=== PATIENT | female | born 1965 | race Caucasian/White ===

== ENCOUNTER 2019-05-25 03:24 | Inpatient (IN) | payer MEDICARE, OTHER ==
[~2019-05-25] VITALS: Ht 157.5 cm; Wt 63.0 kg
[2019-05-25 03:30] VITALS: BP_SYST 153
[2019-05-25] MEDS ORDERED: NACL 0.9% 1,000 ML IV ONE ×3 (03:30→07:30)
[2019-05-25] MEDS ORDERED: SULF1TAB48 PO (04:02)
[2019-05-25] MEDS ORDERED: BISA10SU61 RC (04:02)
[2019-05-25] MEDS ORDERED: MEGE625O3 PO (04:02)
[2019-05-25] MEDS ORDERED: LEVE1000 PO (04:02)
[2019-05-25] MEDS ORDERED: ELA50 PO (04:02)
[2019-05-25] MEDS ORDERED: POLY17PO4 PO (04:02)
[2019-05-25] MEDS ORDERED: [UNRECOGNIZED DRUG - OTHER] PO (04:02)
[2019-05-25] MEDS ORDERED: GLUXR500 PO (04:02)
[2019-05-25] MEDS ORDERED: LIP20 PO (04:02)
[2019-05-25] MEDS ORDERED: METO50TA7 PO (04:02)
[2019-05-25] MEDS ORDERED: MAGN800O PO (04:02)
[2019-05-25] MEDS ORDERED: ACET325T53 PO (04:02)
[2019-05-25 04:07] LABS: HEMOGLOBIN 11.4 g/dL (12.0-16.0); MEAN CORPUSCULAR HEMOGLOBIN 26 pg (27-31); MEAN CORPUSCULAR HGB CONC 32 % (32-36); RED BLOOD CELL COUNT(AUTO) 4.39 MIL/uL (4.2-6.2)
[2019-05-25 04:12] LABS: HEMATOCRIT 35.3 % (36-48); MEAN CORPUSCULAR VOLUME 81 fL (79.0-98.0); PLATELET COUNT (AUTO) 138 K/uL (130-430); RED CELL DISTRIBUTION WIDTH 14.4 % (9.0-15.0); WHITE BLOOD COUNT (AUTO) 3.2 K/uL (4.8-10.8)
[2019-05-25 04:26] LABS: ATYPICAL LYMPHOCYTES % 0 % (0-0); BAND % (MANUAL) 3 % (0-6); EOSINOPHILS % (MANUAL) 2 % (0-7); LYMPHOCYTES % (MANUAL) 10 % (20-46); MONOCYTES % (MANUAL) 6 % (0-11)
[2019-05-25 04:27] LABS: BASOPHILS % (MANUAL) 0 % (0-2)
[2019-05-25] MEDS ORDERED: cefTRIAXone 1 GM IVPB PREMIX 50 ML IV ONE (05:00)
[2019-05-25 05:15] LABS: BILIRUBIN,URINE NEGATIVE (NEGATIVE); BLOOD, URINE 1+ (NEGATIVE); CLARITY/URINE CLEAR (CLEAR); COLOR,URINE YELLOW (YELLOW); GLUCOSE,URINE NEGATIVE (NEGATIVE); KETONES,URINE NEGATIVE (NEGATIVE); LEUKOCYTE ESTERASE ,URINE 2+ (NEGATIVE); NITRITE, URINE NEGATIVE (NEGATIVE); PROTEIN URINE 1+ (NEGATIVE); UROBILINOGEN,URINE 0.2 (0.2-1.0)
[2019-05-25 05:23] LABS: BACTERIA,URINE MODERATE /HPF (None Seen); WBC,URINE 50-80 /HPF (0-3); YEAST,URINE Moderate /HPF (None Seen)
[2019-05-25 06:16] LABS: INR 1.2 (0.8-1.2); PROTHROMBIN TIME 11.7 SECS (9.5-12.5)
[2019-05-25 06:50] LABS: ALBUMIN 2.8 g/dL (3.4-4.8); CALCIUM 7.6 mg/dL (8.4-11.0); CREATININE 0.96 mg/dL (0.55-1.30); POTASSIUM 3.8 mmol/L (3.5-5.1); TOTAL BILIRUBIN 0.2 mg/dL (0.0-1.0)
[2019-05-25] MEDS ORDERED: ACETAMINOPHEN 500 MG TABLET ONE (07:56)
[2019-05-25] MEDS ORDERED: POTASSIUM CHLORIDE 20 MEQ TAB.PRT.SR PO PRN (08:15)
[2019-05-25] MEDS ORDERED: LORazepam 2 MG/ML VIAL IVP PRN (08:15)
[2019-05-25] MEDS ORDERED: MAGNESIUM SULFATE 50 ML IV PRN (08:15)
[2019-05-25] MEDS ORDERED: MUPIROCIN 2% TOPICAL OINTMENT 22 GM NS PRN (08:15)
[2019-05-25] MEDS ORDERED: ONDANSETRON HCL 4 MG/2 ML VIAL IVP PRN (08:15)
[2019-05-25] MEDS ORDERED: MORPHINE 2 MG/ML INJ. SYRINGE IVP PRN ×2 (08:15)
[2019-05-25] MEDS ORDERED: ACETAMINOPHEN 325 MG TABLET PO PRN (08:15)
[2019-05-25] MEDS ORDERED: DEXTROSE 50% JECT 50 ML DISP.SYRIN IVP PRN (08:15)
[2019-05-25] MEDS ORDERED: ZOLPIDEM TARTRATE 5 MG TABLET PO PRN (08:15)
[2019-05-25] MEDS ORDERED: DOCUSATE SODIUM 100 MG CAPSULE PO PRN (08:15)
[2019-05-25 09:00] VITALS: BP_SYST 103
[2019-05-25] MEDS ORDERED: levETIRAcetam 500 MG TABLET PO ONE (09:00)
[2019-05-25] MEDS ORDERED: cefTRIAXone 1 GM VIAL IM SCH (09:00)
[2019-05-25] MEDS ORDERED: HEPARIN SODIUM,PORCINE 5000 UNITS/ML VIAL SUBCUT ONE (09:00)
[2019-05-25] MEDS ORDERED: METOPROLOL SUCCINATE 50 MG TAB.SR.24H (TOPROL XL) PO SCH (09:00)
[2019-05-25] MEDS ORDERED: METOPROLOL SUCCINATE 50 MG TAB.SR.24H (TOPROL XL) PO ONE (09:00)
[2019-05-25] MEDS ORDERED: FLUCONAZOLE 100 mg/ NS 50 ML IV SCH (09:00)
[2019-05-25] MEDS ORDERED: NACL 0.9% 1,000 ML IV SCH (09:45)
[2019-05-25 12:40] VITALS: BP_SYST 139
[2019-05-25] MEDS: ATORVASTATIN 20 MG TABLET PO SCH (15:37)
[2019-05-25] MEDS: FLUCONAZOLE 100 mg/ NS 50 ML IV SCH (15:39)
[2019-05-25] MEDS: INSULIN LISPRO SLIDING SCALE 100 UNITS/ML VIAL (humaLOG) SUBCUT PRN ×2 (15:48→18:46)
[2019-05-25 15:50] VITALS: BP_SYST 143
[2019-05-25 16:19] VITALS: BP_SYST 138
[2019-05-25] MEDS: D5NS 1,000 ML IV SCH (18:47)
[2019-05-25 20:00] VITALS: BP_SYST 112
[2019-05-25] MEDS: levETIRAcetam 500 MG TABLET PO SCH (20:24)
[2019-05-25] MEDS: AMITRIPTYLINE HCL 25 MG TABLET (ELAVIL) PO SCH (20:24)
[2019-05-25] MEDS: HEPARIN SODIUM,PORCINE 5000 UNITS/ML VIAL SUBCUT SCH (20:38)
[2019-05-25] MEDS ORDERED: KETOROLAC TROMETHAMINE 30 MG VIAL IVP PRN (21:15)
[2019-05-25] MEDS: PIPERACILLIN/TAZO 3.375/DEX-IS 50 ML IV SCH (21:57)
[2019-05-25] MEDS: KETOROLAC TROMETHAMINE 15 MG VIAL IVP PRN (21:57)
[2019-05-25] MEDS ORDERED: PIPERACILLIN/TAZOBACTAM 3.375 GM/VIAL (ZOSYN) IV ONE (22:08)
[2019-05-26] VITALS (8 sets, daily range): BP systolic 75–153
[2019-05-26] MEDS ORDERED: NACL 0.9% 1,000 ML IV ONE (00:15)
[2019-05-26] MEDS: cefTRIAXone 1 GM in D5W 50 ML IV SCH (04:27)
[2019-05-26] MEDS: D5NS 1,000 ML IV SCH ×3 (05:37→23:37)
[2019-05-26] MEDS: PIPERACILLIN/TAZO 3.375/DEX-IS 50 ML IV SCH ×4 (06:05→17:33)
[2019-05-26 08:10] LABS: BASOPHILS % (AUTO) 0.3 % (0.0-2.0); EOSINOPHILS # (AUTO) 0.1 K/uL (0.0-0.4); EOSINOPHILS % (AUTO) 2.9 % (0.0-4.0); HEMATOCRIT 35.3 % (36-48); HEMOGLOBIN 11.2 g/dL (12.0-16.0); LYMPHOCYTES # (AUTO) 1.1 K/uL (1.0-5.5); MEAN CORPUSCULAR HEMOGLOBIN 26 pg (27-31); MEAN CORPUSCULAR HGB CONC 32 % (32-36); MEAN CORPUSCULAR VOLUME 82 fL (79.0-98.0); MONOCYTES # (AUTO) 0.1 K/uL (0.0-1.0); MONOCYTES % (AUTO) 2.9 % (1.7-9.3); NEUTROPHILS % (AUTO) 61.9 % (40.0-70.0); PLATELET COUNT (AUTO) 109 K/uL (130-430); RED BLOOD CELL COUNT(AUTO) 4.31 MIL/uL (4.2-6.2); RED CELL DISTRIBUTION WIDTH 15.2 % (9.0-15.0); WHITE BLOOD COUNT (AUTO) 3.3 K/uL (4.8-10.8)
[2019-05-26] MEDS: METOPROLOL SUCCINATE 50 MG TAB.SR.24H (TOPROL XL) PO SCH (08:30)
[2019-05-26] MEDS: levETIRAcetam 500 MG TABLET PO SCH ×2 (08:31→21:06)
[2019-05-26] MEDS: HEPARIN SODIUM,PORCINE 5000 UNITS/ML VIAL SUBCUT SCH ×2 (08:33→21:07)
[2019-05-26] MEDS: ATORVASTATIN 20 MG TABLET PO SCH (08:40)
[2019-05-26 09:47] LABS: CREATININE 0.65 mg/dL (0.55-1.30); POTASSIUM 3.8 mmol/L (3.5-5.1)
[2019-05-26 09:51] LABS: CALCIUM 6.8 mg/dL (8.4-11.0)
[2019-05-26] MEDS ORDERED: CALCIUM CARBONATE 500 MG/ TAB.CHEW PO ONE (10:45)
[2019-05-26] MEDS: INSULIN LISPRO SLIDING SCALE 100 UNITS/ML VIAL (humaLOG) SUBCUT PRN ×2 (11:33→21:15)
[2019-05-26] MEDS ORDERED: NS 500 ML IV ONE (12:15)
[2019-05-26] MEDS: FLUCONAZOLE 100 mg/ NS 50 ML IV SCH (14:28)
[2019-05-26] MEDS: KETOROLAC TROMETHAMINE 15 MG VIAL IVP PRN (18:04)
[2019-05-26] MEDS: AMITRIPTYLINE HCL 25 MG TABLET (ELAVIL) PO SCH (21:06)
[2019-05-26] MEDS: CALCIUM CARBONATE 500 MG/ TAB.CHEW PO SCH (21:06)
[2019-05-27] VITALS (7 sets, daily range): BP systolic 110–137
[2019-05-27] MEDS: cefTRIAXone 1 GM in D5W 50 ML IV SCH (05:30)
[2019-05-27] MEDS: INSULIN LISPRO SLIDING SCALE 100 UNITS/ML VIAL (humaLOG) SUBCUT PRN (06:10)
[2019-05-27 06:47] LABS: BASOPHILS % (AUTO) 0.2 % (0.0-2.0); EOSINOPHILS # (AUTO) 0.1 K/uL (0.0-0.4); EOSINOPHILS % (AUTO) 3.7 % (0.0-4.0); HEMATOCRIT 31.2 % (36-48); HEMOGLOBIN 10.2 g/dL (12.0-16.0); LYMPHOCYTES # (AUTO) 1.1 K/uL (1.0-5.5); MEAN CORPUSCULAR HEMOGLOBIN 26 pg (27-31); MEAN CORPUSCULAR HGB CONC 33 % (32-36); MEAN CORPUSCULAR VOLUME 81 fL (79.0-98.0); MONOCYTES # (AUTO) 0.1 K/uL (0.0-1.0); MONOCYTES % (AUTO) 2.7 % (1.7-9.3); NEUTROPHILS # (AUTO) 2.6 K/uL (1.8-7.7); NEUTROPHILS % (AUTO) 66.4 % (40.0-70.0); PLATELET COUNT (AUTO) 110 K/uL (130-430); RED BLOOD CELL COUNT(AUTO) 3.88 MIL/uL (4.2-6.2); RED CELL DISTRIBUTION WIDTH 15.1 % (9.0-15.0); WHITE BLOOD COUNT (AUTO) 3.9 K/uL (4.8-10.8)
[2019-05-27 07:31] LABS: CREATININE 0.53 mg/dL (0.55-1.30); POTASSIUM 3.3 mmol/L (3.5-5.1)
[2019-05-27] MEDS: METOPROLOL SUCCINATE 50 MG TAB.SR.24H (TOPROL XL) PO SCH (08:53)
[2019-05-27] MEDS: levETIRAcetam 500 MG TABLET PO SCH ×2 (08:53→20:29)
[2019-05-27] MEDS: ATORVASTATIN 20 MG TABLET PO SCH (08:53)
[2019-05-27] MEDS: CALCIUM CARBONATE 500 MG/ TAB.CHEW PO SCH ×2 (08:53→20:27)
[2019-05-27] MEDS: HEPARIN SODIUM,PORCINE 5000 UNITS/ML VIAL SUBCUT SCH ×2 (09:05→20:28)
[2019-05-27] MEDS: D5NS 1,000 ML IV SCH ×2 (11:24→20:38)
[2019-05-27] MEDS ORDERED: MAGNESIUM SULFATE 50 ML IV ONE (14:00)
[2019-05-27] MEDS: FLUCONAZOLE 100 mg/ NS 50 ML IV SCH (14:14)
[2019-05-27] MEDS: AMITRIPTYLINE HCL 25 MG TABLET (ELAVIL) PO SCH (20:28)
== END 2019-05-28 00:30 | disposition short-term general hospital (02) | DRG 871 ==
LOC: SED 03:24 → STU 07:29
PROVIDERS: ADMIT General Practice; ATTEND General Practice
DX: A41.9 Sepsis, unspecified organism (principal); E43 Unspecified severe protein-calorie malnutrition; G82.50 Quadriplegia, unspecified; B37.49 Other urogenital candidiasis; R47.01 Aphasia; I69.351 Hemiplegia and hemiparesis following cerebral infarction affecting right dominant side; E11.9 Type 2 diabetes mellitus without complications; E78.5 Hyperlipidemia, unspecified; E83.42 Hypomagnesemia; G40.909 Epilepsy, unspecified, not intractable, without status epilepticus; I10 Essential (primary) hypertension; N31.9 Neuromuscular dysfunction of bladder, unspecified; Z74.01 Bed confinement status; Z87.440 Personal history of urinary (tract) infections; Z98.2 Presence of cerebrospinal fluid drainage device; Z68.25 Body mass index [BMI] 25.0-25.9, adult; Z79.899 Other long term (current) drug therapy
CPT/HCPCS: 36415; 71045; 80048; 80053; 81000-TC; 82962; 83036; 83605; 83735-TC; 84484; 85007; 85025; 85027; 85610-TC; 85730-TC; 87040-TC; 87081; 87086; 92610-GN; 93005; 96361; 96365; 99285; G0378; J0696; J1450; J1644; J1885; J2543; J3475; J7030; J7040; J7042; J7060

== ENCOUNTER 2019-07-24 23:29 | Inpatient (IN) | payer MEDICARE, OTHER ==
[~2019-07-24] VITALS: Ht 157.5 cm; Wt 60.8 kg
[2019-07-24 23:29] VITALS: BP_SYST 77
[~2019-07-24 23:29] MED LIST: ELA50 PO; LEVE1000 PO; LIP20 PO; METO50TA7 PO
--- NOTE | 2019-07-24 23:29 | NUR ---
Patient to ER bed 03 to gown for evaluation. Side rails up. Report given to ADALGISA Lundberg.
--- NOTE | 2019-07-24 23:30 | NUR ---
ER at bedside examining patient.
[2019-07-24] MEDS ORDERED: NACL 0.9% 1,000 ML IV ONE (23:45)
[2019-07-24] MEDS ORDERED: VANCOMYCIN HCL 1,000 MG in NS 250 ML IV ONE (23:45)
[2019-07-24] MEDS ORDERED: PIPERACILLIN/TAZO 3.375 GM in NS 50 ML IV ONE (23:45)
--- NOTE | 2019-07-24 23:45 | NUR ---
Pt Daysi from [facility] staff sent to ER for possible sepsis UTI, hypotension and fever x 3 days. Pt awake and alert w/ purposeful movements, receptive and descriptive aphasia. Febrile. ABP, 77/44. Will continue to monitor.
[2019-07-25] VITALS (19 sets, daily range): BP systolic 89–124
--- NOTE | 2019-07-25 00:05 | NUR ---
Spoke to of patient Aime to inform of current condition. He stated he was aware of current status and requested we call him back to update if an admission is sought.
[2019-07-25] MEDS ORDERED: PIPERACILLIN/TAZOBACTAM 3.375 GM/VIAL (ZOSYN) IV ONE ×2 (00:10→05:01)
[2019-07-25] MEDS ORDERED: VANCOMYCIN HCL 1000 MG/VIAL IV ONE (00:10)
[2019-07-25 00:22] LABS: CALCIUM 8.2 mg/dL (8.4-11.0); CREATININE 1.93 mg/dL (0.55-1.30); POTASSIUM 4.8 mmol/L (3.5-5.1)
[2019-07-25 00:28] LABS: ALBUMIN 2.7 g/dL (3.4-4.8); TOTAL BILIRUBIN 0.3 mg/dL (0.0-1.0)
[2019-07-25 00:45] LABS: BASOPHILS % (AUTO) 0.3 % (0.0-2.0); EOSINOPHILS # (AUTO) 0.2 K/uL (0.0-0.4); EOSINOPHILS % (AUTO) 1.9 % (0.0-4.0); HEMATOCRIT 29.4 % (36-48); HEMOGLOBIN 9.2 g/dL (12.0-16.0); LYMPHOCYTES # (AUTO) 0.2 K/uL (1.0-5.5); LYMPHOCYTES % (AUTO) 1.9 % (20.5-51.5); MEAN CORPUSCULAR HEMOGLOBIN 26 pg (27-31); MEAN CORPUSCULAR HGB CONC 32 % (32-36); MEAN CORPUSCULAR VOLUME 82 fL (79.0-98.0); MONOCYTES # (AUTO) 0.5 K/uL (0.0-1.0); MONOCYTES % (AUTO) 3.9 % (1.7-9.3); NEUTROPHILS # (AUTO) 11.7 K/uL (1.8-7.7); PLATELET COUNT (AUTO) 175 K/uL (130-430); RED CELL DISTRIBUTION WIDTH 16.4 % (9.0-15.0); WHITE BLOOD COUNT (AUTO) 12.7 K/uL (4.8-10.8)
--- NOTE | 2019-07-25 01:00 | NUR ---
# 16 FR Mendez catheter with use of sterile technique. Immediate return of 150 cc of urine noted. Bedside drainage bag placed below level of bladder. Urine sample collected and sent to lab. Pt tolerated procedure well. Patient unable to toilet self.
--- NOTE | 2019-07-25 01:11 | NUR ---
Spoke to pt Aime, aware of patients status. Provided call back number [phone].
[2019-07-25] MEDS ORDERED: NACL 0.9% 1,000 ML IV ONE ×2 (01:30→06:15)
[2019-07-25 02:23] LABS: BILIRUBIN,URINE NEGATIVE (NEGATIVE); COLOR,URINE YELLOW (YELLOW); GLUCOSE,URINE NEGATIVE (NEGATIVE); KETONES,URINE NEGATIVE (NEGATIVE); LEUKOCYTE ESTERASE ,URINE 2+ (NEGATIVE); NITRITE, URINE NEGATIVE (NEGATIVE); PH,URINE 5.5 (5.0-8.0); PROTEIN URINE 1+ (NEGATIVE); UROBILINOGEN,URINE 0.2 (0.2-1.0)
[2019-07-25 02:24] LABS: BLOOD, URINE TRACE (NEGATIVE)
[2019-07-25 02:33] LABS: STREPTOCOCCUS A SCREEN (RAPID) NEGATIVE (NEGATIVE)
[2019-07-25 02:39] LABS: INFLUENZA A&B ANTIGEN SCREEN NEGATIVE FOR A & B (NEGATIVE)
[2019-07-25] MEDS ORDERED: DOPamine PREMIX 250 ML IV ONE (03:00)
[2019-07-25 03:17] LABS: CLARITY/URINE HAZY (CLEAR)
[2019-07-25 03:18] LABS: BACTERIA,URINE MANY /HPF (None Seen); WBC,URINE 50-80 /HPF (0-3); YEAST,URINE Moderate /HPF (None Seen)
--- NOTE | 2019-07-25 03:33 | NUR ---
Reassessment- PT hypotensive after administeration of Dopamine 400 mg/ D5W 250 ml at 5mcg/kg/min. Titrated dopamine to 10mcg/kg/min. Pt awake, no respiratory distress. Will continue to monitor.
--- NOTE | 2019-07-25 04:33 | NUR ---
Pt titrated to 15mcg/kg/min. Pt still hypotensive with BP of 99/42 MAP 68. Will continue to monitor
--- NOTE | 2019-07-25 04:58 | NUR ---
[place] Case management called requesting patient Admission level, MD admitting, and admission time.
--- NOTE | 2019-07-25 05:12 | NUR ---
Patient will be admitted to care of Dr. Banuelos. Admitted to ICU unit. Will go to room 5. Belongings list completed. Complete and up to date summary report printed. SBAR report to be given at bedside with opportunity for questions.
[2019-07-25] MEDS ORDERED: ONDANSETRON HCL 4 MG/2 ML VIAL IVP PRN (05:30)
[2019-07-25] MEDS ORDERED: MORPHINE 2 MG/ML INJ. SYRINGE IVP PRN (05:30)
[2019-07-25] MEDS ORDERED: ACETAMINOPHEN 325 MG TABLET PO PRN (05:30)
[2019-07-25] MEDS ORDERED: METOCLOPRAMIDE HCL 10 MG/2 ML VIAL IVP PRN (05:30)
--- NOTE | 2019-07-25 05:47 | NUR ---
PAGED DR. JOE FOR ORDERS DIALED: [phone] SPOKE TO: FRANKLIN
--- NOTE | 2019-07-25 05:55 | NUR ---
ICU ADMIT Report given by LIQUIFIED NATURAL GAS SPECIALIST. Pt is awake and alert. Pt is on room air, SPO2 97%. ST on monitor. Skin warm and dry. Mendez catheter in place and draining to gravity. IV 20g to RIGHT HAND with Dopamine drip infusing. Belongings at bedside. Safety precautions in place, call light within reach. Will continue to monitor.
[2019-07-25] MEDS ORDERED: NOREPINEPHRINE BITARTRATE 4 MG in NS 246 ML IV PRN (06:15)
--- NOTE | 2019-07-25 06:15 | NUR ---
Spoke to Dr. Banuelos. made aware that patients HR is in the 160's, orders to stop dopamine drip and change to levophed drip and 1L bolus to be given. Will carry out orders.
[2019-07-25] MEDS: NACL 0.9% 1,000 ML IV SCH ×2 (06:19→14:01)
[2019-07-25] MEDS: PIPERACILLIN/TAZO 3.375/DEX-IS 50 ML IV SCH ×3 (06:20→18:37)
[2019-07-25] MEDS ORDERED: NOREPINEPHRINE 4 MG/4 ML VIAL IV ONE (06:26)
[2019-07-25] MEDS: HYDROCORTISONE SOD SUCC 100 MG/2 ML VIAL IVP SCH ×3 (06:50→18:39)
[2019-07-25] MEDS ORDERED: HYDROCORTISONE SOD SUCC 100 MG/2 ML VIAL ONE (07:06)
--- NOTE | 2019-07-25 07:07 | NUR ---
CONSULT ID CONSULTING MD: Abhinav LYNCH CONSULTING PHONE NUMBER: [phone] SPOKE TO: RAF ORDERED BY: DR. JOE
--- NOTE | 2019-07-25 07:15 | NUR ---
ENDORSEMENT Pt care endorsed to ADALGISA Martinez using nursing SBAR.
--- NOTE | 2019-07-25 07:30 | NUR ---
Opening Note Received bedside report from endorsing RN for continuation of care. Patient awake and resting in bed, no signs or symptoms of acute distress noted. Bed locked in lowest position, bed alarm on, and call light within reach. Fall and safety precautions in place.
[2019-07-25] MEDS: levETIRAcetam 1,000 MG in NS 100 ML IV SCH ×2 (09:00→20:54)
[2019-07-25 09:23] LABS: CALCIUM 7.1 mg/dL (8.4-11.0); CREATININE 1.18 mg/dL (0.55-1.30); POTASSIUM 4.3 mmol/L (3.5-5.1)
[2019-07-25 09:28] LABS: ALBUMIN 2.5 g/dL (3.4-4.8); TOTAL BILIRUBIN 0.4 mg/dL (0.0-1.0)
--- NOTE | 2019-07-25 09:30 | NUR ---
Dr. Tamez at bedside examining patient. New orders received.
[2019-07-25] MEDS: FLUCONAZOLE 200 mg/ NS 100 ML IV SCH (10:00)
--- NOTE | 2019-07-25 10:15 | NUR ---
Dr. Banuelos at bedside examining patient. New orders received.
--- NOTE | 2019-07-25 10:34 | NUR ---
Dr. Kalpesh Krueger at bedside examining patient. New orders received.
--- NOTE | 2019-07-25 10:45 | NUR ---
SS NOTES/DCP: DUAL RATE DEALER phoned spouse, Aime Jay @ [phone] for DCP. Per spouse, pt has been staying at [facility] since 04/2019 for OT, PT, etc. Pt had fever last night and low BP prompting facility to bring patient to ED. per spouse, pt had aneurysm in 2009 and has been staying home until April 2019. Per spouse, pt is dependent on all her ADL's and requires DME. Pt does not have an advanced directive and the patient is conserved by spouse. Pt has a history of depression, especially due to Covid visitation restrictions and was taking anti-depressant medications. If transferred, the family prefers for her to be transferred to [facility] or discharge back to [facility]. ELLIOT Dominguez notified.
[2019-07-25 11:05] LABS: INR 1.3 (0.8-1.2); PROTHROMBIN TIME 13.1 SECS (9.5-12.5)
--- NOTE | 2019-07-25 13:12 | NUR ---
PICC Line Insertion PICC Line insertion being done at bedside by PICC Line RN. No signs or symptoms of acute distress noted.
--- NOTE | 2019-07-25 13:24 | NUR ---
KRISH GOTTLIEB. LEFT A VOICE MESSAGE FOR PENNY DIALED [phone]
[2019-07-25] MEDS: HEPARIN SODIUM,PORCINE 5000 UNITS/ML VIAL SUBCUT SCH ×2 (15:49→20:55)
--- NOTE | 2019-07-25 19:08 | NUR ---
Closing Note Patient sleeping in bed, arousable to voice. No signs or symptoms of acute distress noted. Endorsed bedside report to oncoming RN using SBAR approach for continuation of care.
--- NOTE | 2019-07-25 19:15 | NUR ---
OPENING NOTE SBAR REPORT RECEIVED FROM NEREYDA DIANA. CARE ASSUMED. PT LAYING IN BED. ANO X2. PT ON ROOM AIR. O2 SATURATION 97%. SINUS RHYTHM ON MONITOR. PEDAL AND RADIAL PULSES NORMAL. PT HAS LUE PICC LINE RUNNING NS @ 100 ML/HR. LEVOPHED WAS STOPPED @ 1400. PT NPO. ABDOMEN SOFT NON DISTENDED. UGARTE CATHETER IN PLACE FLOWING TO GRAVITY. URINE YELLOW AND CLEAR. SKIN INTACT. BED LOCKED IN LOWEST POSITION. CALL LIGHT WITHIN REACH. SAFETY PRECAUTIONS IN PLACE. WILL CONTINUE TO MONITOR.
[2019-07-25] MEDS ORDERED: VANCOMYCIN HCL 1,500 MG in NS 250 ML IV SCH (21:00)
[2019-07-26] VITALS (23 sets, daily range): BP systolic 94–133
[2019-07-26] MEDS: NACL 0.9% 1,000 ML IV SCH ×3 (00:41→17:27)
[2019-07-26] MEDS: HYDROCORTISONE SOD SUCC 100 MG/2 ML VIAL IVP SCH ×4 (00:41→17:27)
[2019-07-26] MEDS: PIPERACILLIN/TAZO 3.375/DEX-IS 50 ML IV SCH ×4 (00:42→17:28)
--- NOTE | 2019-07-26 02:32 | NUR ---
CLOSING NOTE PT LAYING IN BED. NO SIGNS OR SYMPTOMS OF DISTRESS NOTED. SBAR REPORT GIVEN TO IVAN DIANA. CARE ENDORSED.
--- NOTE | 2019-07-26 02:35 | NUR ---
ENDORSEMENT OF CARE Report received by Nicole DIANA. Patient laying in bed, VSS. Safety precautions in place. Will continue to monitor.
[2019-07-26 06:40] LABS: BASOPHILS % (AUTO) 0.1 % (0.0-2.0); EOSINOPHILS % (AUTO) 0.1 % (0.0-4.0); HEMATOCRIT 25.3 % (36-48); HEMOGLOBIN 8.2 g/dL (12.0-16.0); LYMPHOCYTES # (AUTO) 0.8 K/uL (1.0-5.5); LYMPHOCYTES % (AUTO) 12.6 % (20.5-51.5); MEAN CORPUSCULAR HEMOGLOBIN 26 pg (27-31); MEAN CORPUSCULAR HGB CONC 32 % (32-36); MEAN CORPUSCULAR VOLUME 81 fL (79.0-98.0); MONOCYTES # (AUTO) 0.2 K/uL (0.0-1.0); NEUTROPHILS # (AUTO) 5.7 K/uL (1.8-7.7); NEUTROPHILS % (AUTO) 84.2 % (40.0-70.0); PLATELET COUNT (AUTO) 160 K/uL (130-430); RED BLOOD CELL COUNT(AUTO) 3.12 MIL/uL (4.2-6.2); RED CELL DISTRIBUTION WIDTH 16.2 % (9.0-15.0)
[2019-07-26 06:47] LABS: WHITE BLOOD COUNT (AUTO) 6.7 K/uL (4.8-10.8)
--- NOTE | 2019-07-26 06:48 | NUR ---
Nutrition Update Prosper Scale 14 noted. Pt admitted for Septic shock Diet: no diet order BMI: 24.5 kg/m2 RD to follow per nutrition care standards.
[2019-07-26 07:24] LABS: CREATININE 0.68 mg/dL (0.55-1.30); TOTAL BILIRUBIN 0.2 mg/dL (0.0-1.0)
[2019-07-26 07:26] LABS: POTASSIUM 2.5 mmol/L (3.5-5.1)
[2019-07-26 07:27] LABS: CALCIUM 6.7 mg/dL (8.4-11.0)
--- NOTE | 2019-07-26 07:30 | NUR ---
PATIENT CARE ENDORSED TO ADALGISA LUNA USING NURSING SBAR.
--- NOTE | 2019-07-26 08:30 | NUR ---
Opening Notes Patient received resting in bed with no signs of distress noted. Patient nonverbal but able to open eyes. Patient on color television console monitor with NSR. Patient on room air breathing evenly and unlabored. Patient has a CASTRO PICC receiving fluids. Patient has a shane catheter draining yellow urine. Safety and isolation precautions observed.
[2019-07-26] MEDS: HEPARIN SODIUM,PORCINE 5000 UNITS/ML VIAL SUBCUT SCH ×3 (08:39→20:17)
[2019-07-26] MEDS: levETIRAcetam 1,000 MG in NS 100 ML IV SCH ×2 (08:40→20:16)
--- NOTE | 2019-07-26 09:35 | NUR ---
AM Endorsement Received from material handler 2nd shift RN using SBAR format. Patient in no signs of distress at this time. Addendum: 07/26/19 at 0938 by Melia Finley RN Time of endorsement at 0735 AM.
[2019-07-26] MEDS: POTASSIUM CHLORIDE 30 MEQ in NS 250 ML IV SCH ×2 (10:02→15:15)
[2019-07-26] MEDS: FLUCONAZOLE 200 mg/ NS 100 ML IV SCH (10:02)
--- NOTE | 2019-07-26 12:00 | NUR ---
RN Rounds/Update Patient resting with eyes closed at this time, no signs of distress noted. Daja from [facility] called for patient update. Per Daja, patient cannot be transferred with pending COVID test. Patient also seen by Nava speech therapist. Per Nava's recommendation, patient to remain NPO at this time. Safety precautions enforced. Isolation precautions observed.
--- NOTE | 2019-07-26 12:05 | NUR ---
S.T. SWALLOW EVAL SWALLOW EVAL COMPLETED. PT PRESENTS W SEV PRE-ORAL, ORAL AND PHARYNGEAL DYSPHAGIA W/ POOR INTEREST FOR P.O., ORAL DEFENSIVENESS, ABSENT BOLUS MANIPULATION, AND ABSENT SWALLOW. PT IS AT RISK FOR ASPIRATION, MALNUTRITION, AND DEHYDRATION. REC: NPO - ALTERNATIVE METHOD FOR FEEDING. NURSE LUNA NOTIFIED.
--- NOTE | 2019-07-26 16:00 | NUR ---
RN Rounds Patient resting in bed at this time. Patient in no signs of distress. Patient able to move left extremity but does not follow commands. Safety and isolation precautions enforced. Addendum: 07/26/19 at 1846 by Melia Finley RN Patient able to follow commands and nod when asked questions. Patient only says 's name.
--- NOTE | 2019-07-26 16:34 | NUR ---
Case mgt: Covid result still pending--Swallow eval completed and recommends NPO--GI MD input noted--f/u for G-tube placement once Covid result is in and is negative. DAVON RN
--- NOTE | 2019-07-26 19:10 | NUR ---
Closing Notes Patient endorsed to night time nanny RN using SBAR format. Patient in no signs of distress at this time. Safety and isolation precautions observed.
--- NOTE | 2019-07-26 19:15 | NUR ---
REPORT RECEIVED FROM DAY SHIFT NURSE. PT IS AWAKE AND NON-VERBAL. PT IS ON ROOM AIR AND O2 SATS ARE IN THE HIGH 90'S. IVF OF NS IS INFUSING WELL VIA CASTRO MIDLINE AT 100ML/HR. UGARTE CATH TO GRAVITY DRAINAGE NOTED WITH YELLOWISH URINE. FALL, SEIZURE, DROPLET ISOLATION AND SAFETY PRECAUTIONS ARE IN PLACE.
--- NOTE | 2019-07-26 21:00 | NUR ---
ATTEMPTED TO CONNECT PT'S WITH PT VIA FACE TIME, BUT 'S PHONE WOULD NOT CONNECT. PT'S STATED HE WOULD CALL BACK IN AM. HE WAS UPDATED ON PT'S STATUS PER HIS REQUEST.
--- NOTE | 2019-07-26 23:00 | NUR ---
TELEMETRY BED STILL NOT AVAILABLE IN [facility], PER BRIAN [facility] CHARGE NURSE.
[2019-07-27] VITALS (12 sets, daily range): BP systolic 109–142
[2019-07-27] MEDS: HYDROCORTISONE SOD SUCC 100 MG/2 ML VIAL IVP SCH ×4 (00:09→17:15)
[2019-07-27] MEDS: PIPERACILLIN/TAZO 3.375/DEX-IS 50 ML IV SCH ×4 (00:10→17:15)
--- NOTE | 2019-07-27 01:20 | NUR ---
VSS. NO RESPIRATORY DISTRESS NOTED. IVF OF NS IS INFUSING WELL VIA CASTRO PICC AT 100ML/HR. FALL, DROPLET ISOLATION, SEIZURE AND SAFETY PRECAUTIONS ARE IN PLACE.
--- NOTE | 2019-07-27 02:45 | NUR ---
PHOTOS OF DRY SCABS ON RT LEG TAKEN AND PLACED IN P'S CHART.
--- NOTE | 2019-07-27 04:30 | NUR ---
CHG BATH GIVEN, INCLUDING ORAL AND UGARTE CATH CARE. BED BATH ALSO GIVEN.
[2019-07-27] MEDS: NACL 0.9% 1,000 ML IV SCH ×2 (04:39→15:16)
--- NOTE | 2019-07-27 07:15 | NUR ---
Opening Note Received report from maintenance technician 2nd shift RN. Pt awake and nonverbal. No signs of pain or distress noted on RA.
[2019-07-27 08:34] LABS: BASOPHILS % (AUTO) 0.4 % (0.0-2.0); HEMATOCRIT 28.3 % (36-48); LYMPHOCYTES # (AUTO) 1.4 K/uL (1.0-5.5); MEAN CORPUSCULAR HEMOGLOBIN 26 pg (27-31); MEAN CORPUSCULAR HGB CONC 32 % (32-36); MEAN CORPUSCULAR VOLUME 81 fL (79.0-98.0); MONOCYTES # (AUTO) 0.3 K/uL (0.0-1.0); MONOCYTES % (AUTO) 5.8 % (1.7-9.3); NEUTROPHILS % (AUTO) 68.8 % (40.0-70.0); PLATELET COUNT (AUTO) 158 K/uL (130-430); RED BLOOD CELL COUNT(AUTO) 3.49 MIL/uL (4.2-6.2); RED CELL DISTRIBUTION WIDTH 16.5 % (9.0-15.0); WHITE BLOOD COUNT (AUTO) 5.8 K/uL (4.8-10.8)
[2019-07-27 08:53] LABS: CREATININE 0.65 mg/dL (0.55-1.30); POTASSIUM 3.2 mmol/L (3.5-5.1); TOTAL BILIRUBIN 0.3 mg/dL (0.0-1.0)
[2019-07-27 08:57] LABS: CALCIUM 6.8 mg/dL (8.4-11.0)
[2019-07-27] MEDS: HEPARIN SODIUM,PORCINE 5000 UNITS/ML VIAL SUBCUT SCH ×2 (09:00→15:14)
[2019-07-27] MEDS: levETIRAcetam 1,000 MG in NS 100 ML IV SCH (09:00)
--- NOTE | 2019-07-27 09:49 | NUR ---
Placed call to pt's Vladimir regarding results of swallow evaluation and recommendation of speech therapist, and NGT placement orders. Vladiimr states he does not want the NGT placement and wants us to try to feed the pt. Provided education and information about nursing interventions following aspiration precautions.
[2019-07-27] MEDS ORDERED: POTASSIUM CHLORIDE 40 MEQ in D5W 250 ML IV ONE (10:00)
[2019-07-27] MEDS: FLUCONAZOLE 200 mg/ NS 100 ML IV SCH (10:56)
--- NOTE | 2019-07-27 11:50 | NUR ---
DC PLANNING Order to transfer to contracted hospital Tele LOC via ACLS. Faxed order/pt info to [facility], ph [phone]. Called & spoke with Nancy Tierney, ph [phone], agreeable with transfer prefers [facility]. Called & spoke with [facility] business systems analyst, ph [phone], CM assigned is Sandra & business systems analyst working with her is Isabel. They are busy @ this time left msg with information, will work on transfer & return my call. Charge nurse in ICU aware.
--- NOTE | 2019-07-27 13:30 | NUR ---
Patient noted with BM. Performed josé antonio care and linen change. Patient also indicating that she wants to have something to drink. Provided patient with sips of orange juice, bed in high fowlers position for aspiration precautions. Patient was able to hold drink and swallow without coughing.
--- NOTE | 2019-07-27 13:49 | NUR ---
DC PLANNING Received call from ELLIOT Flores @ [facility], has bed @ [facility] but still waiting to review with Physician for final ok to transfer. States will call nsg station with transfer information. annmarie Manzo cyber ops planner, took transfer packet including CD to nsg station. Updated ICU nurse covering for pt's nurse.
--- NOTE | 2019-07-27 17:26 | NUR ---
Dietitian Recommendations *Continue NPO Please see Nutrition Assessment for further details. LT, RD
--- NOTE | 2019-07-27 17:30 | NUR ---
Patient in no signs of pain or distress. Currently sleeping, equal chest rise and fall.
--- NOTE | 2019-07-27 19:30 | NUR ---
Endorsed plan of care to shift supervisor film processing RN.
--- NOTE | 2019-07-27 20:04 | NUR ---
Re: [place] Transfer Received call from Stephanie from [facility]. Patient will transfer to [facility] to telemetry unit room 434. Phone number for report: [phone]
--- NOTE | 2019-07-27 20:59 | NUR ---
Report for [place] transfer to Hali RN at [phone]
--- NOTE | 2019-07-27 21:54 | NUR ---
PT TRANSFERRED Pt transferred to [facility], all belongings taken with pt. Vital signs stable, no complaints of acute distress noted. EMS service at bedside transferred pt to [facility].
== END 2019-07-27 21:54 | disposition short-term general hospital (02) | DRG 871 ==
LOC: SED 23:29 → SIC 07-25 04:01
PROVIDERS: ADMIT Internal Medicine Hospice and Palliative Medicine; ATTEND Internal Medicine Hospice and Palliative Medicine
PROC: 02HV33Z Insertion of Infusion Device into Superior Vena Cava, Percutaneous Approach (ICD-10-PCS; principal; 2019-07-25)
PROC: B548ZZA Ultrasonography of Superior Vena Cava, Guidance (ICD-10-PCS; 2019-07-25)
DX: A41.9 Sepsis, unspecified organism (principal); R65.21 Severe sepsis with septic shock; G82.50 Quadriplegia, unspecified; N12 Tubulo-interstitial nephritis, not specified as acute or chronic; E87.2 Acidosis; I69.351 Hemiplegia and hemiparesis following cerebral infarction affecting right dominant side; N17.9 Acute kidney failure, unspecified; Z20.828 Contact with and (suspected) exposure to other viral communicable diseases; G40.909 Epilepsy, unspecified, not intractable, without status epilepticus; I10 Essential (primary) hypertension; Z74.01 Bed confinement status; Z79.899 Other long term (current) drug therapy
CPT/HCPCS: 36415; 71045; 76770; 80053; 81000-TC; 83605; 84484; 85025; 85610-TC; 85730-TC; 86403; 86710; 87040-TC; 87081; 87086; 92610-GN; 93005; 93306; 96365; 96368; 99285; C1751; J1265; J1450; J1644; J1720; J1953; J2543; J3370; J3480; J7030; J7050; J7060; J7120

== ENCOUNTER 2021-10-16 12:29 | Emergency (ER) | payer OTHER, MEDICARE ==
[~2021-10-16] VITALS: Ht 162.6 cm; Wt 63.5 kg
[2021-10-16 12:36] VITALS: BP_SYST 178
[2021-10-16] MEDS ORDERED: NACL 0.9% 1,000 ML IV ONE (12:45)
[2021-10-16 13:00] LABS: BASOPHILS # (AUTO) 0.3 K/uL (0.0-0.2); BASOPHILS % (AUTO) 2.8 % (0.0-2.0); EOSINOPHILS # (AUTO) 0.3 K/uL (0.0-0.4); EOSINOPHILS % (AUTO) 2.3 % (0.0-4.0); HEMATOCRIT 39.2 % (36-48); HEMOGLOBIN 12.5 g/dL (12.0-16.0); LYMPHOCYTES # (AUTO) 1.9 K/uL (1.0-5.5); LYMPHOCYTES % (AUTO) 15.6 % (20.5-51.5); MEAN CORPUSCULAR HEMOGLOBIN 25 pg (27-31); MEAN CORPUSCULAR HGB CONC 32 % (32-36); MEAN CORPUSCULAR VOLUME 79 fL (79.0-98.0); MONOCYTES # (AUTO) 0.5 K/uL (0.0-1.0); MONOCYTES % (AUTO) 3.7 % (1.7-9.3); NEUTROPHILS # (AUTO) 9.4 K/uL (1.8-7.7); NEUTROPHILS % (AUTO) 75.6 % (40.0-70.0); PLATELET COUNT (AUTO) 194 K/uL (130-430); RED BLOOD CELL COUNT(AUTO) 4.99 MIL/uL (4.2-6.2); WHITE BLOOD COUNT (AUTO) 12.4 K/uL (4.8-10.8)
[2021-10-16 14:00] LABS: GLUCOSE 220 mg/dL (70-99)
[2021-10-16 14:01] LABS: ASPARTATE AMINOTRANSFERASE 21 U/L (10-37); CALCIUM 9.2 mg/dL (8.4-11.0); CREATININE 0.89 mg/dL (0.55-1.30); GFR AFRICAN AMERICAN 84 mL/min (>90); TOTAL BILIRUBIN 0.3 mg/dL (0.0-1.0); UREA NITROGEN, BLOOD 19 mg/dL (8-21)
[2021-10-16 14:02] LABS: ALANINE AMINOTRANSFERASE 38 U/L (12-78); ALBUMIN 3.9 g/dL (3.4-4.8)
[2021-10-16 14:04] LABS: ANION GAP 14 (5-15); CHLORIDE 100 mmol/L (98-107); POTASSIUM 3.6 mmol/L (3.5-5.1); SODIUM SERUM 136 mmol/L (136-145)
[2021-10-16 15:46] LABS: BILIRUBIN,URINE NEGATIVE (NEGATIVE); BLOOD, URINE NEGATIVE (NEGATIVE); CLARITY/URINE CLEAR (CLEAR); COLOR,URINE YELLOW (YELLOW); GLUCOSE,URINE NEGATIVE (NEGATIVE); KETONES,URINE NEGATIVE (NEGATIVE); LEUKOCYTE ESTERASE ,URINE NEGATIVE (NEGATIVE); NITRITE, URINE NEGATIVE (NEGATIVE); PH,URINE 6.5 (5.0-8.0); PROTEIN URINE 2+ (NEGATIVE); UROBILINOGEN,URINE 0.2 (0.2-1.0)
[2021-10-16 15:58] LABS: RBC,URINE 0-3 /HPF (0-3)
[2021-10-16 15:59] LABS: BACTERIA,URINE None Seen /HPF (None Seen); MUCUS,URINE None Seen /LPF (None Seen); WBC,URINE 0-3 /HPF (0-3)
[2021-10-16] MEDS ORDERED: levETIRAcetam 500 MG IV PREMIX 100 ML IV ONE (16:15)
[2021-10-16 20:11] VITALS: BP_SYST 138
== END 2021-10-16 20:11 | disposition home or self-care (01) ==
LOC: SED 12:29
DX: R56.9 Unspecified convulsions (principal); Z79.899 Other long term (current) drug therapy; Z20.822 Contact with and (suspected) exposure to COVID-19
CPT/HCPCS: 99285; 96365; 70450; 71045; 96361; 87426; 80053; 81000; 82550; 82962; 85025; 84484; 36415; 93005; 76376; J1953; J7030; 82542

== ENCOUNTER 2023-12-29 04:18 | Emergency (ER) | payer OTHER, MEDICARE ==
[~2023-12-29] VITALS: Ht 167.6 cm; Wt 72.6 kg
[~2023-12-29 04:18] MED LIST changes: +AMIT50TA4 PO; -ELA50 PO
[2023-12-29 04:26] VITALS: BP_SYST 110; PULSE 90; RESP 20; TEMP 98; O2SAT 98
[2023-12-29] MEDS ORDERED: CITA40TA22 PO (05:00)
[2023-12-29] MEDS ORDERED: ONDA-8 TL (05:00)
[2023-12-29] MEDS ORDERED: MELA5TAB12 PO (05:00)
[2023-12-29] MEDS ORDERED: AMLO5TAB4 PO (05:00)
[2023-12-29] MEDS ORDERED: CANA100T PO (05:00)
[2023-12-29] MEDS ORDERED: APIX5TAB PO (05:00)
[2023-12-29] MEDS ORDERED: LISI20TA30 PO (05:00)
[2023-12-29] MEDS ORDERED: FURO-150 PO (05:00)
[2023-12-29] MEDS ORDERED: METF-833 PO (05:00)
[2023-12-29] MEDS ORDERED: LACT10SO7 PO (05:00)
[2023-12-29] MEDS ORDERED: METO-290 PO (05:00)
[2023-12-29] MEDS ORDERED: OMEG10006 PO (05:00)
[2023-12-29] MEDS ORDERED: POLY119P2 PO (05:00)
[2023-12-29] MEDS ORDERED: GLIM2TAB PO (05:00)
[2023-12-29] MEDS ORDERED: ATOR-449 PO (05:00)
[2023-12-29] MEDS ORDERED: CRAN450T9 PO (05:00)
[2023-12-29] MEDS ORDERED: TOPXL100 PO (05:00)
[2023-12-29] MEDS: NACL 0.9% 1,000 ML IV ONE (06:11)
[2023-12-29 06:20] LABS: BILIRUBIN,URINE NEGATIVE (NEGATIVE); BLOOD, URINE NEGATIVE (NEGATIVE); CLARITY/URINE SL CLOUDY (CLEAR); COLOR,URINE YELLOW (YELLOW); GLUCOSE,URINE 3+ (NEGATIVE); KETONES,URINE NEGATIVE (NEGATIVE); LEUKOCYTE ESTERASE ,URINE 1+ (NEGATIVE); NITRITE, URINE NEGATIVE (NEGATIVE); PH,URINE 5.5 (5.0-8.0); PROTEIN URINE NEGATIVE (NEGATIVE); UROBILINOGEN,URINE 0.2 (0.2-1.0)
[2023-12-29 06:22] LABS: BASOPHILS % (AUTO) 0.3 % (0.0-2.0); EOSINOPHILS # (AUTO) 0.1 K/uL (0.0-0.4); EOSINOPHILS % (AUTO) 0.8 % (0.0-4.0); HEMATOCRIT 39.6 % (36-48); HEMOGLOBIN 12.7 g/dL (12.0-16.0); LYMPHOCYTES # (AUTO) 2.6 K/uL (1.0-5.5); LYMPHOCYTES % (AUTO) 20.1 % (20.5-51.5); MEAN CORPUSCULAR HEMOGLOBIN 25 pg (27-31); MEAN CORPUSCULAR HGB CONC 32 % (32-36); MEAN CORPUSCULAR VOLUME 77 fL (79.0-98.0); MONOCYTES # (AUTO) 0.9 K/uL (0.0-1.0); MONOCYTES % (AUTO) 6.7 % (1.7-9.3); NEUTROPHILS # (AUTO) 9.3 K/uL (1.8-7.7); NEUTROPHILS % (AUTO) 72.1 % (40.0-70.0); PLATELET COUNT (AUTO) 250 K/uL (130-430); RED BLOOD CELL COUNT(AUTO) 5.14 MIL/uL (4.2-6.2); WHITE BLOOD COUNT (AUTO) 12.8 K/uL (4.8-10.8)
[2023-12-29 06:39] LABS: COVID19 ANTIGEN SOFIA FIA NEGATIVE (NEGATIVE)
[2023-12-29 06:42] LABS: PROTHROMBIN TIME 10.6 SECS (9.5-12.5)
[2023-12-29 06:44] LABS: BACTERIA,URINE MANY /HPF (None Seen); RBC,URINE 0-3 /HPF (0-3); WBC,URINE 20-50 /HPF (0-3)
[2023-12-29 06:46] LABS: INFLUENZA TYPE A Negative (NEGATIVE); INFLUENZA TYPE B NEGATIVE (NEGATIVE)
[2023-12-29 06:47] LABS: ALANINE AMINOTRANSFERASE 36 U/L (12-78); ALBUMIN 3.3 g/dL (3.4-4.8); ANION GAP 12 (5-15); ASPARTATE AMINOTRANSFERASE 16 U/L (10-37); BILIRUBIN,DIRECT 0.1 mg/dL (0.0-0.3); CALCIUM 9.4 mg/dL (8.4-11.0); CARBON DIOXIDE 28 mmol/L (23-29); CHLORIDE 100 mmol/L (98-107); CREATININE 0.61 mg/dL (0.55-1.30); GFR AFRICAN AMERICAN 129 mL/min (>90); GFR NON AFRICAN-AMERICAN 107 mL/min (>90); GLUCOSE 146 mg/dL (74-106); POTASSIUM 3.5 mmol/L (3.5-5.1); SODIUM SERUM 140 mmol/L (136-145); TOTAL BILIRUBIN 0.6 mg/dL (0.0-1.0); TOTAL PROTEIN, SERUM 7.9 g/dL (6.4-8.3); UREA NITROGEN, BLOOD 19 mg/dL (8-21)
[2023-12-29] MEDS ORDERED: NITR-85 GT (08:02)
[2023-12-29 10:04] VITALS: BP_SYST 102; PULSE 69; RESP 18; TEMP 98; O2SAT 96
== END 2023-12-29 10:06 ==
LOC: SED 04:18
DX: J06.9 Acute upper respiratory infection, unspecified (principal); B97.89 Other viral agents as the cause of diseases classified elsewhere; R82.71 Bacteriuria; G40.909 Epilepsy, unspecified, not intractable, without status epilepticus; E11.9 Type 2 diabetes mellitus without complications; I10 Essential (primary) hypertension; Z20.822 Contact with and (suspected) exposure to COVID-19; Z87.440 Personal history of urinary (tract) infections; Z93.1 Gastrostomy status; Z79.899 Other long term (current) drug therapy; Z79.84 Long term (current) use of oral hypoglycemic drugs
CPT/HCPCS: 99285; 96360; 71045; 87426; 80076; 80048; 81001; 85025; 85610; 85730; 87040; 87086; 84484; 36415; 93005; 83605; 87804 ×2; J7030; 81000; 81015